=== PATIENT | male | born 1940 | race Caucasian/White ===

== ENCOUNTER 2018-05-02 14:02 | Outpatient (CLI) | payer OTHER | END 2018-05-02 14:14 | disposition home or self-care (01) | LOC: EDBD 14:02 → RAD 14:02 | DX: I50.40 Unspecified combined systolic (congestive) and diastolic (congestive) heart failure (principal); R18.8 Other ascites ==

== ENCOUNTER 2018-05-04 07:09 | Outpatient (CLI) | payer OTHER | END 2018-05-04 07:22 | disposition home or self-care (01) | LOC: LAB 07:09 | DX: E11.9 Type 2 diabetes mellitus without complications (principal); Z12.11 Encounter for screening for malignant neoplasm of colon; N39.0 Urinary tract infection, site not specified; Z12.5 Encounter for screening for malignant neoplasm of prostate; N40.2 Nodular prostate without lower urinary tract symptoms ==

== ENCOUNTER 2018-10-11 10:02 | Outpatient (CLI) | payer OTHER | END 2018-10-11 10:14 | disposition home or self-care (01) | LOC: NUCLEAR 10:02 | DX: C61 Malignant neoplasm of prostate (principal) | CPT/HCPCS: 78306; 78320; A9503 ==

== ENCOUNTER 2018-10-17 07:09 | Outpatient (CLI) | payer OTHER | END 2018-10-17 07:24 | disposition home or self-care (01) | LOC: TOM 07:09 | DX: C61 Malignant neoplasm of prostate (principal) | CPT/HCPCS: 74178; Q9965 ==

== ENCOUNTER 2018-10-17 12:55 | Outpatient (CLI) | payer OTHER | END 2018-10-17 13:08 | disposition home or self-care (01) | LOC: LAB 12:55 | DX: R97.20 Elevated prostate specific antigen [PSA] (principal) ==

== ENCOUNTER 2020-04-04 06:15 | Outpatient (CLI) | payer OTHER | END 2020-04-04 06:27 | disposition home or self-care (01) | LOC: LAB 06:15 | PROVIDERS: ATTEND Internal Medicine Cardiovascular Disease | DX: E78.00 Pure hypercholesterolemia, unspecified (principal); E78.1 Pure hyperglyceridemia; I10 Essential (primary) hypertension; N41.0 Acute prostatitis; E11.9 Type 2 diabetes mellitus without complications ==

== ENCOUNTER 2020-04-04 07:17 | Outpatient (CLI) | payer OTHER | END 2020-04-04 07:25 | disposition home or self-care (01) | LOC: RAD 07:17 | PROVIDERS: ATTEND Internal Medicine Cardiovascular Disease | DX: S22.32XA Fracture of one rib, left side, initial encounter for closed fracture (principal); M54.5 Low back pain; S09.90XA Unspecified injury of head, initial encounter ==

== ENCOUNTER → 2021-05-13 | Outpatient (CLI) | payer OTHER | END | disposition home or self-care (01) | LOC: LAB 11:08 | PROVIDERS: ATTEND Radiology Diagnostic Radiology | DX: C61 Malignant neoplasm of prostate (principal) ==

== ENCOUNTER 2021-05-19 08:42 | Outpatient (CLI) | payer OTHER | END 2021-05-19 08:51 | disposition home or self-care (01) | LOC: MRI 08:42 | PROVIDERS: ATTEND Internal Medicine Cardiovascular Disease | DX: C61 Malignant neoplasm of prostate (principal) | CPT/HCPCS: 72197; A9575; 72196 ==

== ENCOUNTER 2021-05-21 07:14 | Outpatient (CLI) | payer OTHER | END 2021-05-21 07:15 | disposition home or self-care (01) | LOC: NUCLEAR 07:14 | PROVIDERS: ATTEND Internal Medicine Cardiovascular Disease | DX: C61 Malignant neoplasm of prostate (principal) | CPT/HCPCS: 78306; A9503 ==

== ENCOUNTER 2022-08-26 07:31 | Outpatient (CLI) | payer OTHER | END 2022-08-26 07:44 | disposition home or self-care (01) | LOC: TOM 07:31 | PROVIDERS: ATTEND Internal Medicine Cardiovascular Disease | DX: C18.9 Malignant neoplasm of colon, unspecified (principal) ==

== ENCOUNTER 2023-01-21 10:55 | Outpatient (CLI) | payer OTHER | END 2023-01-21 11:09 | disposition home or self-care (01) | LOC: MRI 10:55 | PROVIDERS: ATTEND Internal Medicine Cardiovascular Disease | DX: M54.59 Other low back pain (principal); I87.1 Compression of vein; I87.8 Other specified disorders of veins | CPT/HCPCS: 72148 ==

== ENCOUNTER 2023-02-01 12:35 | Inpatient (IN) | payer OTHER ==
[~2023-02-01] VITALS: Ht 162.6 cm; Wt 58.5 kg
[2023-02-05] MEDS ORDERED: PREDNISONE10 M2 ×2 (14:44)
[2023-02-05] MEDS ORDERED: MEGESTROL ACETA20 MG PO ×2 (14:45)
[2023-02-05] MEDS ORDERED: FAMOTIDINE20 MG PO ×2 (14:45)
[2023-02-05] MEDS ORDERED: DOCUSATE SODIU100 MG PO ×2 (14:45)
[2023-02-05] MEDS ORDERED: GABAPENTIN300 MG PO ×2 (14:45)
[2023-02-05] MEDS ORDERED: SUBLIMAZE50 MCG/1 M IV PUSH ×2 (14:45)
[2023-02-05] MEDS ORDERED: LIDODERM1 EACH TOP ×2 (14:45)
[2023-02-05] MEDS ORDERED: LORAZEPAM1 MG PO ×2 (14:50)
[2023-02-05] MEDS ORDERED: PREDNISONE10 M2 PO ×2 (14:50)
== END 2023-02-05 16:04 | disposition home or self-care (01) | DRG 479 ==
LOC: MEDI 12:35
PROVIDERS: ADMIT Internal Medicine Cardiovascular Disease; ATTEND Internal Medicine Cardiovascular Disease
PROC: CP1Z1ZZ Planar Nuclear Medicine Imaging of Musculoskeletal System, All using Technetium 99m (Tc-99m) (ICD-10-PCS; 2023-02-02)
PROC: 0PB43ZX Excision of Thoracic Vertebra, Percutaneous Approach, Diagnostic (ICD-10-PCS; principal; 2023-02-03)
DX: C79.51 Secondary malignant neoplasm of bone (principal); G89.3 Neoplasm related pain (acute) (chronic); C61 Malignant neoplasm of prostate; I10 Essential (primary) hypertension; K57.90 Diverticulosis of intestine, part unspecified, without perforation or abscess without bleeding
CPT/HCPCS: 240

== ENCOUNTER → 2023-02-09 | Outpatient (CLI) | payer OTHER ==
[~2023-02-09] MED LIST: DOCUSATE SODIU100 MG PO; FAMOTIDINE20 MG PO; GABAPENTIN300 MG PO; LIDODERM1 EACH TOP; LORAZEPAM1 MG PO; MEGESTROL ACETA20 MG PO; PREDNISONE10 M2; PREDNISONE10 M2 PO; SUBLIMAZE50 MCG/1 M IV PUSH
== END | disposition home or self-care (01) ==
LOC: SONOGRAMA 12:11
PROVIDERS: ATTEND Internal Medicine Cardiovascular Disease
DX: C61 Malignant neoplasm of prostate (principal); C79.89 Secondary malignant neoplasm of other specified sites